=== PATIENT | male | born 1990 | race African-American/Black ===

== ENCOUNTER 2017-11-23 19:05 | Emergency (ER) | payer OTHER ==
[~2017-11-23] VITALS: Ht 172.7 cm; Wt 81.0 kg
[~2017-11-23 19:05] MED LIST: IBUPROFEN 600MG TABLET ONE
[2017-11-23] MEDS ORDERED: IBUPROFEN 600MG TABLET PO ONE (20:15)
[2017-11-23 20:33] LABS: BASOPHILS % 0.3 % (0.0-2.0); EOSINOPHILS % 1.2 % (0.0-5.0); HEMATOCRIT. 40.3 % (42.0-52.0); HEMOGLOBIN. 13.7 g/dL (14.0-18.0); LYMPHOCYTES % 8.2 % (20.0-50.0); MEAN CORPUSCULAR VOLUME 82.5 fL (80.0-94.0); MEAN PLATELET VOLUME 8.9 fl (7.4-10.4); MONOCYTES % 12.3 % (2.0-8.0); PLATELET 201 x1000/uL (130-400); RED BLOOD CELL COUNT 4.88 mill/uL (4.7-6.1); RED CELL DISTRIBUTION WIDTH 13.1 % (11.6-14.6)
[2017-11-23 20:34] LABS: INR 1.1; PROTHROMBIN TIME 11.4 sec (9.4-11.6)
[2017-11-23 20:43] LABS: CHLORIDE 102 mEq/L (98-107)
[2017-11-23 21:54] LABS: CLARITY URINE CLEAR (CLEAR); COLOR URINE YELLOW (YELLOW); KETONES URINE TRACE (NEGATIVE); LEUKOCYTE ESTERASE URINE 3+ (NEGATIVE); NITRITE URINE NEGATIVE (NEGATIVE); OCCULT BLOOD URINE 1+ (NEGATIVE); PH URINE 5.5 (4.5-8.0); PROTEIN URINE NEGATIVE (NEGATIVE); SPECIFIC GRAVITY URINE 1.021 (1.005-1.030); UROBILINOGEN URINE 0.2 E.U./dL (0.2-1.0)
[2017-11-24] MEDS ORDERED: AZITHROMYCIN 500 MG TABLET PO SCH (01:13)
[2017-11-24] MEDS ORDERED: CEFTRIAXONE SODIUM 250 MG/VIAL IM SCH (01:13)
[2017-11-24 02:30] VITALS: BP 121/71
[2017-11-24] MEDS ORDERED: IBUPROFEN 400MG TABLET PO ONE (02:30)
== END 2017-11-24 03:05 | disposition home or self-care (01) ==
LOC: ER 21:16
DX: N39.0 Urinary tract infection, site not specified (principal); N43.3 Hydrocele, unspecified; F17.200 Nicotine dependence, unspecified, uncomplicated; F12.10 Cannabis abuse, uncomplicated
CPT/HCPCS: 36415; 74176; 76870; 80053; 81003; 83690; 85025; 85610; 93976; 96372; 99285; J0696; Z7610; 87086